=== PATIENT | female | born 1950 | race American Indian/Alaskan Native ===

== ENCOUNTER 2018-04-19 17:28 | Inpatient (IN) | payer MEDICARE ==
--- NOTE | 2018-04-19 17:44 | Cat Scan Report ---
FINAL REPORT PROCEDURE: CT head without contrast. TECHNIQUE: Computerized tomography of the head was performed without contrast material. HISTORY: neuro deficits < 6hrs or sx present upon awakening COMPARISON: No prior studies are available for comparison. FINDINGS: The ventricles are normal in size. The contreras matter and white matter appear normal. There are no mass lesions. There is no intracranial hemorrhage. There are no signs of acute infarction. An MRI scan with diffusion-weighted imaging is the most sensitive means of detecting an early stroke. The calvarium appears intact. The mastoid air cells and visualized paranasal sinuses are clear. IMPRESSION: Normal study.
--- NOTE | 2018-04-19 18:30 | Emergency Department Report ---
ED General Adult HPI - General Chief complaint: Altered Mental Status Stated complaint: POSS CVA Time Seen by Provider: 04/19/18 17:30 Source: patient, EMS Mode of arrival: Stretcher Limitations: Other - History of Present Illness Initial comments: Patient with history of diabetes hypertension and" Jayuya" here for evaluation of "not quite right" earlier today family states that she was in the toilet: [facility] at 1630 when the daughter was in there with her as well she apparently had a spell with slurred speech and possibly slid off the toilet. She did arrive with some slurred speech possible TIA she does have chronic weakness from her degenerative disease that the family says runs in the family that they're calling Jayuya's she is here for evaluation of a spell in the toilet at [facility] for evaluation of possible TIA versus seizure versus syncope, she does deny trauma she says she is having no neck pain no back pain or chest pain no abdominal pain no focal extremity complaints. On initial exam she did have some slurred speech and left-sided weakness that seemed to improve in the ED she was seen immediately on arrival within the TPA window cased was discussed with Dr. Dahl of telemetry neurology who did evaluate the patient -: Gradual, unknown Radiation: non-radiation Severity scale (0 -10): 0 Worsens with: none Associated Symptoms: denies other symptoms, confusion, malaise, syncope, weakness. denies: chest pain, cough, diaphoresis, fever/chills, headaches, loss of appetite, nausea/vomiting, rash, seizure, shortness of breath - Related Data Allergies Allergy/AdvReac Type Severity Reaction Status Date / Time No Known Allergies Allergy Unverified 04/19/18 17:29 ED Review of Systems ROS: Stated complaint: POSS CVA Other details as noted in HPI Comment: Unobtainable due to pts medical conditions (patient was unable to give complete history remainder of the history is from family she did have LOC but denied any head injury neck pain back pain chest pain abdominal pain or other focal complaints denies any extremity complaints 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 - Surgical History Past Surgical History?: No - Social History Smoking Status: Never Smoker Substance Use Type: None ED Physical Exam - General Limitations: Other General appearance: alert, in no apparent distress, anxious - Head Head exam: Present: atraumatic, normocephalic - Eye Eye exam: Present: PERRL, EOMI - ENT ENT exam: Present: normal exam, normal orophraynx - Neck Neck exam: Present: normal inspection, other (Nexus negative). Absent: tenderness, meningismus - Respiratory Respiratory exam: Present: normal lung sounds bilaterally, other (atraumatic). Absent: respiratory distress, wheezes, rales, rhonchi, stridor - Cardiovascular Cardiovascular Exam: Present: regular rate, normal rhythm, normal heart sounds - GI/Abdominal GI/Abdominal exam: Present: soft, other (atraumatic). Absent: distended, tenderness, guarding, rebound, rigid, mass, pulsatile mass - Extremities Exam Extremities exam: Present: normal inspection, normal capillary refill, other ( atraumatic). Absent: pedal edema, joint swelling, calf tenderness - Back Exam Back exam: Present: normal inspection, other (atraumatic). Absent: CVA tenderness (L), muscle spasm, paraspinal tenderness, vertebral tenderness - Neurological Exam Neurological exam: Present: alert, other (left sided pronator drift with left- sided facial deviation and speech dysarthria) - Psychiatric Psychiatric exam: Present: anxious ED Course Vital Signs 04/19/18 04/19/18 04/19/18 14:54 15:00 17:35 Temperature Pulse Rate 83 Respiratory 11 L Rate Blood Pressure 141/62 122/61 O2 Sat by Pulse 96 97 92 Oximetry 04/19/18 04/19/18 04/19/18 17:43 18:00 18:34 Temperature 98.1 F Pulse Rate 49 L 54 L Respiratory 18 12 Rate Blood Pressure 122/61 111/83 103/52 O2 Sat by Pulse 94 96 Oximetry ED Medical Decision Making - Lab Data Result diagrams: 04/19/18 17:41 04/19/18 17:41 - EKG Data -: EKG Interpreted by Me - EKG Data Interpretation: no acute changes - Radiology Data Radiology results: report reviewed - Medical Decision Making Patient was immediately presented as a code stroke, CT showed no acute process, family did arrive to give more history including history of chronic neurodegenerative disease with possible TIA versus syncope versus spell at the [facility]. Case was discussed Dr. Dahl. He did evaluate the patient by a neuro tele. He did feel that the patient should be admitted for syncope versus TIA versus seizure patient will be admitted case was discussed Dr. Brownlee who will admit for further evaluation of possible syncope versus TIA versus seizure was deficits did send to be resolving and improving no signs of acute CVA on the CT no persistent deficits on exam at this time patient therefore was not felt to be a TPA candidate and Dr. Dahl did not recommend TPA at this time patient will be admitted for further evaluation Critical care attestation.: If time is entered above; I have spent that time in minutes in the direct care of this critically ill patient, excluding procedure time. ED Disposition Clinical Impression: TIA (transient ischemic attack), Spell of abnormal behavior Disposition: OP ADMIT IP TO THIS HOSP Is pt being admited?: Yes Condition: Stable Time of Disposition: 19:24
[2018-04-19 18:41] LABS: Basophils # (Auto) 0.1 K/mm3 (0.0-0.1); Basophils % (Auto) 1.1 % (0.0-1.8); Eosinophils # (Auto) 0.1 K/mm3 (0.0-0.4); Eosinophils % (Auto) 2.7 % (0.0-4.3); Hematocrit 37.2 % (30.3-42.9); Hemoglobin 12.2 gm/dl (10.1-14.3); Lymphocytes # (Auto) 1.4 K/mm3 (1.2-5.4); Mean Corpuscular HGB Conc 33 % (30-34); Mean Corpuscular Hemoglobin 30 pg (28-32); Mean Corpuscular Volume 93 fl (79-97); Monocytes # (Auto) 0.2 K/mm3 (0.0-0.8); Monocytes % (Auto) 5.4 % (0.0-7.3); Platelet Count 186 K/mm3 (140-440); Red Blood Count 4.02 M/mm3 (3.65-5.03)
[2018-04-19 19:00] LABS: BUN/Creatinine Ratio 19; Blood Urea Nitrogen 17 mg/dL (7-17); Hemolysis Index 13
[2018-04-19 19:04] LABS: INR 0.94 (0.87-1.13); Partial Thromboplastin Time 25.2 Sec. (24.2-36.6)
--- NOTE | 2018-04-20 01:14 | History and Physical Report ---
History of Present Illness Date of examination: 04/19/18 Date of admission: 04/19/18 19:25 Chief complaint: Chief complaint Passed out Slurred speech History of present illness: History of Present Illness: Patient with history of diabetes hypertension and" Gabby" here for evaluation of Syncope. Earlier today family states that she was in the toilet at [facility] at 1630 when the daughter was in there with her as well she apparently had a spell with slurred speech and possibly slid off the toilet and passed out. 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 On initial exam she did have some slurred speech and left-sided weakness that seemed to improve in the ED she was seen immediately on arrival within the TPA window cased was discussed with Dr. Dahl of telemetry neurology who did evaluate the patient -: Gradual, unknown Radiation: non-radiation Severity scale (0 -10): 0 Worsens with: none Associated Symptoms: denies other symptoms, confusion, malaise, syncope, weakness. denies: chest pain, cough, diaphoresis, fever/chills, headaches, loss of appetite, nausea/vomiting, rash, seizure, shortness of breath Past Medical History Previous Medical History?: Yes Hx Hypertension: Yes Hx Diabetes: Yes Additional medical history: high cholesterol; hypothyroidism. 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) Medications and Allergies Allergies Allergy/AdvReac Type Severity Reaction Status Date / Time No Known Allergies Allergy Unverified 04/19/18 17:29 Exam - Constitutional Vitals: Temp Pulse Resp BP Pulse Ox 98.1 F 60 20 119/65 97 04/19/18 20:52 04/20/18 00:05 04/20/18 00:03 04/20/18 00:03 04/20/18 00:05 General appearance: Present: no acute distress, well-nourished - EENT Eyes: Present: PERRL ENT: hearing intact, clear oral mucosa - Neck Neck: Present: supple, normal ROM - Respiratory Respiratory effort: normal Respiratory: bilateral: CTA - Cardiovascular Heart rate: 78 Rhythm: regular Heart Sounds: Present: S1 & S2. Absent: rub, click - Extremities Extremities: no ischemia, pulses intact, pulses symmetrical, No edema Peripheral Pulses: within normal limits - Abdominal General gastrointestinal: Present: soft, non-tender, non-distended, normal bowel sounds Female genitourinary: Present: normal - Rectal Rectal Exam: deferred - Integumentary Integumentary: Present: clear, warm, dry - Musculoskeletal Musculoskeletal: strength equal bilaterally, other (Involuntary mopvements present) - Psychiatric Psychiatric: appropriate mood/affect, intact judgment & insight - Neurologic Neurologic: CNII-XII intact, moves all extremities Results - Labs CBC & Chem 7: 04/19/18 17:41 04/19/18 17:41 Labs: Laboratory Last Values WBC 4.7 K/mm3 (4.5-11.0) 04/19/18 17:41 RBC 4.02 M/mm3 (3.65-5.03) 04/19/18 17:41 Hgb 12.2 gm/dl (10.1-14.3) 04/19/18 17:41 Hct 37.2 % (30.3-42.9) 04/19/18 17:41 MCV 93 fl (79-97) 04/19/18 17:41 MCH 30 pg (28-32) 04/19/18 17:41 MCHC 33 % (30-34) 04/19/18 17:41 RDW 14.0 % (13.2-15.2) 04/19/18 17:41 Plt Count 186 K/mm3 (140-440) 04/19/18 17:41 Lymph % (Auto) 31.0 % (13.4-35.0) 04/19/18 17:41 [place] % (Auto) 5.4 % (0.0-7.3) 04/19/18 17:41 Eos % (Auto) 2.7 % (0.0-4.3) 04/19/18 17:41 Baso % (Auto) 1.1 % (0.0-1.8) 04/19/18 17:41 Lymph # 1.4 K/mm3 (1.2-5.4) 04/19/18 17:41 [place] # 0.2 K/mm3 (0.0-0.8) 04/19/18 17:41 Eos # 0.1 K/mm3 (0.0-0.4) 04/19/18 17:41 Baso # 0.1 K/mm3 (0.0-0.1) 04/19/18 17:41 Seg Neutrophils % 59.8 % (40.0-70.0) 04/19/18 17:41 Seg Neutrophils # 2.8 K/mm3 (1.8-7.7) 04/19/18 17:41 PT 13.0 Sec. (12.2-14.9) 04/19/18 17:41 INR 0.94 (0.87-1.13) 04/19/18 17:41 APTT 25.2 Sec. (24.2-36.6) 04/19/18 17:41 Thrombin Time 15.8 Sec. (15.1-19.6) 04/19/18 17:41 Sodium 139 mmol/L (137-145) 04/19/18 17:41 Potassium 3.5 mmol/L (3.6-5.0) L 04/19/18 17:41 Chloride 101.8 mmol/L (98-107) 04/19/18 17:41 Carbon Dioxide 23 mmol/L (22-30) 04/19/18 17:41 Anion Gap 18 mmol/L 04/19/18 17:41 BUN 17 mg/dL (7-17) 04/19/18 17:41 Creatinine 0.9 mg/dL (0.7-1.2) 04/19/18 17:41 Estimated GFR > 60 ml/min 04/19/18 17:41 BUN/Creatinine Ratio 19 % 04/19/18 17:41 Glucose 133 mg/dL (65-100) H 04/19/18 17:41 POC Glucose 137 (70-105) H 04/19/18 21:00 Calcium 9.0 mg/dL (8.4-10.2) 04/19/18 17:41 Troponin T < 0.010 ng/mL (0.00-0.029) 04/19/18 17:41 - Imaging and Cardiology EKG: report reviewed Assessment and Plan Advance Directives: Yes (Full code) VTE prophylaxis?: Chemical Plan of care discussed with patient/family: Yes - Patient Problems (1) Syncope and collapse Current Visit: Yes Status: Acute Plan to address problem: Syncope work up CDS/ECHO (2) TIA (transient ischemic attack) Current Visit: Yes Status: Acute Qualifiers: Transient cerebral ischemia type: carotid artery syndrome (hemispheric) Qualified Code(s): G45.1 - Carotid artery syndrome (hemispheric) Plan to address problem: High possibility ECHO and MRi ordered (3) [place]'s disease Current Visit: Yes Status: Chronic Plan to address problem: Supportive care (4) T2DM (type 2 diabetes mellitus) Current Visit: Yes Status: Chronic Qualifiers: Diabetes mellitus alf insulin use: without alf use Plan to address problem: Check A1c Coverage (5) DVT prophylaxis Current Visit: Yes Status: Acute Plan to address problem: on lovenox Gi prophylaxis initiated
[2018-04-20] MEDS ORDERED: ZOFRAN IV PRN (01:20)
[2018-04-20] MEDS ORDERED: MORPHINE IV PRN (01:20)
[2018-04-20] MEDS ORDERED: TYLENOL PO PRN (01:20)
[2018-04-20] MEDS ORDERED: SODIUM CHLORIDE FLUSH SYRINGE 10 ML IV PRN (01:20)
[2018-04-20] MEDS ORDERED: NACL 0.9% 1000 ML 1,000 ML IV SCH (02:00)
[2018-04-20 02:03] LABS: Basophils # (Auto) 0.1 K/mm3 (0.0-0.1); Basophils % (Auto) 0.8 % (0.0-1.8); Eosinophils # (Auto) 0.1 K/mm3 (0.0-0.4); Eosinophils % (Auto) 1.5 % (0.0-4.3); Hematocrit 35.4 % (30.3-42.9); Hemoglobin 11.9 gm/dl (10.1-14.3); Lymphocytes # (Auto) 1.4 K/mm3 (1.2-5.4); Lymphocytes % (Auto) 22.7 % (13.4-35.0); Mean Corpuscular HGB Conc 34 % (30-34); Mean Corpuscular Hemoglobin 31 pg (28-32); Mean Corpuscular Volume 91 fl (79-97); Monocytes # (Auto) 0.4 K/mm3 (0.0-0.8); Monocytes % (Auto) 6.5 % (0.0-7.3); Platelet Count 183 K/mm3 (140-440)
[2018-04-20 02:20] LABS: Alanine Aminotransferase 12 units/L (7-56); Albumin 3.8 g/dL (3.9-5); BUN/Creatinine Ratio 19; Blood Urea Nitrogen 15 mg/dL (7-17); Hemolysis Index 0
[2018-04-20] MEDS ORDERED: LEXISCAN IV ONE (08:19)
--- NOTE | 2018-04-20 12:44 | Treadmill Report ---
NUCLEAR IMAGING STUDY REASON FOR STUDY: Chest pain. IMAGING PROTOCOL: Single isotope used. The patient received 10 mCi of Technetium 99m Tetrofosmin for resting image and 28 mCi of Technetium 99m Tetrofosmin for stress imaging. The imaging for the whole procedure was completed 30-90 minutes following the initial injection of Technetium 99m tetrofosmin. The SPECT imaging in the 180 degree arc was performed in the right anterior oblique projection. Computerized reconstruction of the images was performed for analysis. IMAGING RESULTS: Normal cavity size from stress to rest. Normal distribution of radionuclide in the anterior, inferior, septal, and apical regions. Gated SPECT, EF greater than 65% with no wall motion abnormality. The patient infused Lexiscan with no EKG changes. SUMMARY: 1. Negative Lexiscan EKG. 2. Normal rest and stress myocardial perfusion scan. No significant stress ischemia. No wall motion abnormality. Gated SPECT, EF greater than 65%. JOB# [id number] YUE/TAYLOR
--- NOTE | 2018-04-20 15:18 | Magnetic Resonance Report ---
MRI OF THE BRAIN WITHOUT CONTRAST: HISTORY: TIA PROCEDURE: Multiplanar, multisequence MR imaging of the brain without IV contrast was performed. FINDINGS: Compared to the CT dated 04/19/18. The brain parenchyma signal intensity and its kendall white interface are within normal limits on all sequences. No evidence for acute ischemia, hemorrhage or mass. No chronic infarct or extra-axial fluid collection. The midline structures are central. The basal cisterns are patent. Normal ventricular size. The orbital cavities and sella turcica demonstrate no abnormality. The visualized paranasal sinuses and mastoid air cells are well aerated. IMPRESSION: Unremarkable non-enhanced MRI of the brain.
--- NOTE | 2018-04-20 15:24 | Progress Note ---
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 Plan to address problem: Supportive care (4) T2DM (type 2 diabetes mellitus) Current Visit: Yes Status: Chronic 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: without halfway use Plan to address problem: Check A1c Coverage (5) DVT prophylaxis Current Visit: Yes Status: Acute Plan to address problem: on lovenox Gi prophylaxis initiated Subjective Date of service: 04/20/18 Principal diagnosis: Syncope and collapse Interval history: Symptomatically better No focal deficits Objective - Constitutional Vitals: Vital Signs - 12hr 04/20/18 04/20/18 04/20/18 04:00 05:51 09:07 Temperature 98.4 F 98.2 F Pulse Rate 117 H 62 50 L Respiratory 20 20 18 Rate Blood Pressure 105/62 Blood Pressure 105/62 125/71 [Left] O2 Sat by Pulse 88 100 98 Oximetry 04/20/18 04/20/18 04/20/18 10:53 10:57 10:58 Temperature Pulse Rate 48 L 84 78 Respiratory Rate Blood Pressure 161/83 152/73 142/77 Blood Pressure [Left] O2 Sat by Pulse Oximetry 04/20/18 04/20/18 04/20/18 10:59 11:00 11:01 Temperature Pulse Rate 76 68 66 Respiratory Rate Blood Pressure 153/82 145/71 145/71 Blood Pressure [Left] O2 Sat by Pulse Oximetry General appearance: Present: no acute distress, well-nourished - EENT Eyes: PERRL, EOM intact ENT: hearing intact, clear oral mucosa Ears: bilateral: normal - Neck Neck: supple, normal ROM - Respiratory Respiratory effort: normal Respiratory: bilateral: CTA - Breasts Breasts: normal - Cardiovascular Heart rate: 78 Rhythm: regular Heart Sounds: Present: S1 & S2. Absent: gallop, rub Extremities: no ischemia, pulses intact, No edema, normal color, Full ROM - Gastrointestinal General gastrointestinal: Present: soft, non-tender, non-distended, normal bowel sounds - Genitourinary Female genitourinary: normal - Integumentary Integumentary: clear, warm, dry - Musculoskeletal Musculoskeletal: 1, strength equal bilaterally - Neurologic Neurologic: moves all extremities - Psychiatric Psychiatric: memory intact, appropriate mood/affect, intact judgment & insight - Labs CBC & Chem 7: 04/20/18 01:40 04/20/18 01:40 Labs: Abnormal lab results 04/19/18 04/19/18 04/19/18 Range/Units 17:41 17:46 21:00 Potassium 3.5 L (3.6-5.0) mmol/L Glucose 133 H (65-100) mg/dL POC Glucose 140 H 137 H (70-105) Hemoglobin A1c (4-6) % Albumin (3.9-5) g/dL 04/20/18 04/20/18 Range/Units 01:40 01:40 Potassium (3.6-5.0) mmol/L Glucose 155 H (65-100) mg/dL POC Glucose (70-105) Hemoglobin A1c 6.7 H (4-6) % Albumin 3.8 L (3.9-5) g/dL
[2018-04-20] MEDS: PEPCID PO SCH ×2 (15:30→21:28)
[2018-04-20] MEDS: SODIUM CHLORIDE FLUSH SYRINGE 10 ML IV SCH ×2 (15:31→21:29)
[2018-04-20] MEDS ORDERED: LOVENOX SUB-Q SCH (22:00)
[2018-04-21 05:55] LABS: Basophils # (Auto) 0.1 K/mm3 (0.0-0.1); Basophils % (Auto) 1.3 % (0.0-1.8); Eosinophils # (Auto) 0.2 K/mm3 (0.0-0.4); Eosinophils % (Auto) 4.4 % (0.0-4.3); Hematocrit 36.3 % (30.3-42.9); Lymphocytes # (Auto) 1.8 K/mm3 (1.2-5.4); Lymphocytes % (Auto) 39.2 % (13.4-35.0); Mean Corpuscular HGB Conc 33 % (30-34); Mean Corpuscular Hemoglobin 30 pg (28-32); Mean Corpuscular Volume 91 fl (79-97); Monocytes # (Auto) 0.4 K/mm3 (0.0-0.8); Monocytes % (Auto) 7.8 % (0.0-7.3); Platelet Count 191 K/mm3 (140-440); Red Blood Count 3.99 M/mm3 (3.65-5.03); Red Cell Distribution Width 13.8 % (13.2-15.2)
[2018-04-21 06:22] LABS: Alanine Aminotransferase 16 units/L (7-56); Albumin 3.5 g/dL (3.9-5); BUN/Creatinine Ratio 18; Blood Urea Nitrogen 14 mg/dL (7-17); Calcium 8.7 mg/dL (8.4-10.2); Hemolysis Index 6
[2018-04-21] MEDS: PEPCID PO SCH (10:01)
[2018-04-21] MEDS: SODIUM CHLORIDE FLUSH SYRINGE 10 ML IV SCH (10:01)
--- NOTE | 2018-04-21 16:11 | Discharge Summary ---
Providers - Providers Date of Admission: 04/19/18 19:25 Date of discharge: 04/21/18 Attending physician: BERNADETTE PINEDA Primary care physician: HOTEL HOUSEKEEPER Hospitalization Condition: Stable Hospital course: Assessment and Plan Patient Problems (1) Syncope and collapse Current Visit: Yes Status: Acute Plan to address problem: Syncope work up CDS/ECHO/MRI----Negative Patient can be discharged today (2) TIA (transient ischemic attack) Current Visit: Yes Status: Acute Qualifiers: Transient cerebral ischemia type: carotid artery syndrome (hemispheric) Qualified Code(s): G45.1 - Carotid artery syndrome (hemispheric) ECHO /CDS/MRI results normal (3) [place]'s disease Current Visit: Yes Status: Chronic Plan to address problem: Supportive care (4) T2DM (type 2 diabetes mellitus) Current Visit: Yes Status: Chronic Qualifiers: Diabetes mellitus mcfp insulin use: without mcfp use Plan to address problem: Meds adjusted Disposition: DC-01 TO HOME OR SELFCARE Time spent for discharge: 32 Core Measure Documentation - Palliative Care Palliative Care/ Comfort Measures: Not Applicable - Core Measures Any of the following diagnoses?: none Exam - Constitutional Vitals: Temp Pulse Resp BP Pulse Ox 98.1 F 62 20 148/66 100 04/21/18 11:25 04/21/18 11:25 04/21/18 11:25 04/21/18 11:25 04/21/18 11:25 General appearance: Present: no acute distress, well-nourished - EENT Eyes: Present: PERRL ENT: hearing intact, clear oral mucosa - Neck Neck: Present: supple, normal ROM - Respiratory Respiratory effort: normal Respiratory: bilateral: CTA - Cardiovascular Heart Sounds: Present: S1 & S2. Absent: rub, click - Extremities Extremities: pulses symmetrical, No edema Peripheral Pulses: within normal limits - Abdominal General gastrointestinal: Present: soft, non-tender, non-distended, normal bowel sounds Female genitourinary: Present: normal - Integumentary Integumentary: Present: clear, warm, dry - Musculoskeletal Musculoskeletal: gait normal, strength equal bilaterally - Psychiatric Psychiatric: appropriate mood/affect, intact judgment & insight - Neurologic Neurologic: CNII-XII intact, moves all extremities Plan Activity: no restrictions Diet: low cholesterol, low salt, diabetic Follow up with: PRIMARY CARE, [Primary Care Provider] - 3-5 Days JAYDON FINN MD [Staff Physician] - 7 Days
[2018-04-21 17:02] VITALS: BP 128/74
== END 2018-04-21 19:00 | disposition home health service (06) | DRG 69 ==
LOC: ED 17:28 → 4A 19:25
PROVIDERS: ADMIT Internal Medicine; ATTEND Internal Medicine
DX: G45.9 Transient cerebral ischemic attack, unspecified (principal); G10 Huntington's disease; R55 Syncope and collapse; E11.9 Type 2 diabetes mellitus without complications; E78.00 Pure hypercholesterolemia, unspecified; E03.9 Hypothyroidism, unspecified
CPT/HCPCS: 36415; 70450; 70551; 78452; 80048; 80053; 82962; 83036; 84484; 85025; 85610; 85670; 85730; 93005; 93010; 93017; 93306; 93880; A9502; J1650; J2785; J7030